=== PATIENT | male | born 1960 | race Caucasian/White ===

== ENCOUNTER 2017-06-13 06:15 | Day surgery (SDC) | payer OTHER ==
[~2017-06-13 06:15] MED LIST: COZAAR25 MG PO; GABAPENTIN25 G1; OMEGA 3 500 SO1 EACH PO; TRAMADOL HCL50 MG PO
== END 2017-06-13 21:10 | disposition home or self-care (01) ==
LOC: CIR.AMB 06:15
DX: S66.196A Other injury of flexor muscle, fascia and tendon of right little finger at wrist and hand level, initial encounter (principal)